=== PATIENT | male | born 1995 | race African-American/Black ===

== ENCOUNTER 2025-06-10 18:30 | Emergency (ER) | payer BC ==
[~2025-06-10 18:30] MED LIST: Iopamidol 370 76% 100 ML VIAL ONE
[2025-06-10 18:51] LABS: #Basophils 0.2 thou/uL (0.0-0.2); #Eosinophils 0.1 thou/uL (0.0-0.7); #Lymphocytes 1.7 thou/uL (1.20-3.40); #Monocytes 0.4 thou/uL (0.11-0.59); #Neutrophils 6.1 thou/uL (1.40-6.50); %Basophils 2.5 % (0.0-1.0); %Eosinophils 1.8 % (0.0-10.0); %Lymphocytes 19.9 % (21.0-51.0); %Monocytes 4.7 % (0.0-10.0); %Neutrophils 71.3 % (42.0-75.0); Hematocrit 45.7 % (42.0-52.0); Hemoglobin 16.2 g/dL (14.0-18.0); Mean Corpuscular Hemoglobin 29.6 pg (27.0-31.0); Mean Corpuscular Volume 83.6 fl (78.0-98.0); Platelet Count 281 10x3/uL (130-400); Red Blood Cell (RBC) Count 5.47 mill/uL (4.70-6.10); White Blood Cell (WBC) Count 8.5 10x3/uL (4.8-10.8)
[2025-06-10 19:08] LABS: ALT (SGPT) 19 U/L (Less than 45); AST (SGOT) 24 U/L (11-34); Albumin 4.6 g/dL (3.1-4.5); Alkaline Phosphatase 71 U/L (40-110); Anion Gap 16 mmol/L (10-20); BUN (Urea Nitrogen) 13 mg/dL (8.9-20.6); Bilirubin, Total 0.7 mg/dL (0.3-1.2); Calc. Creatinine Clearance 0 mL/min (70-130); Calcium 9.7 mg/dL (7.8-10.44); Carbon Dioxide 26 mmol/L (22-29); Chloride 105 mmol/L (98-107); Globulin 3.1 g/dL (2.4-3.5); Glucose 144 mg/dL (70-105); Magnesium 1.9 mg/dL (1.6-2.6); Potassium 3.6 mmol/L (3.5-5.1); Sodium 143 mmol/L (136-145); Troponin I Less than 0.010 ng/mL (< 0.028)
[2025-06-10] MEDS ORDERED: Ketorolac Tromethamine 30 MG (1 mL) VIAL ONE (20:14)
== END 2025-06-10 20:47 | disposition home or self-care (01) ==
LOC: BURERS 18:30
DX: F41.1 Generalized anxiety disorder (principal); K04.7 Periapical abscess without sinus; R51.9 Headache, unspecified; G89.29 Other chronic pain; F17.290 Nicotine dependence, other tobacco product, uncomplicated
CPT/HCPCS: 70450; 71275; 80053; 83735; 83880; 84484; 85025; 93005; 96374; J1885; Q9967